=== PATIENT | male | born 1980 | race Caucasian/White ===

== ENCOUNTER 2016-09-11 12:07 | Emergency (ER) | payer SELFPAY ==
[2016-09-11 12:14] VITALS: BP 142/74; PULSE 64; O2SAT 100
--- NOTE | 2016-09-11 12:20 | ERPHSYRPT ---
- History of Present Illness Time Seen by Provider: 09/11/16 12:18 Source: patient Exam Limitations: no limitations Patient Subjective Stated Complaint: pt states he began having a toothache last pm. states pain in on the right lower jaw. Triage Nursing Assessment: pt pink, warm, dry. dental caries noted to right lower molars. pt afebrile. Physician History: pt states he began having a toothache last pm. states pain in on the right lower jaw. Timing/Duration: day(s) Associated Symptoms: denies symptoms Allergies/Adverse Reactions: poison oak extract [Poison [place] Extract] Allergy (Mild, Verified 09/11/16 12:14) Rash poison sumac extract [Poison [place] Extract] Allergy (Mild, Verified 09/11/16 12: 14) Rash Hx Tetanus, Diphtheria Vaccination/Date Given: Yes (up to date) Hx Influenza Vaccination/Date Given: No Hx Pneumococcal Vaccination/Date Given: No Immunizations Up to Date: Yes - Review of Systems Constitutional: No Symptoms Ears, Nose, & Throat: Loose Teeth Respiratory: No Symptoms Cardiac: No Symptoms Abdominal/Gastrointestinal: No Symptoms Genitourinary Symptoms: No Symptoms Musculoskeletal: No Symptoms - Past Medical History Pertinent Past Medical History: No Neurological History: Migraines ENT History: No Pertinent History Cardiac History: No Pertinent History Respiratory History: No Pertinent History Endocrine Medical History: No Pertinent History Musculoskeletal History: No Pertinent History GI Medical History: No Pertinent History History: No Pertinent History Psycho-Social History: No Pertinent History - Past Surgical History Past Surgical History: No Neuro Surgical History: No Pertinent History Cardiac: No Pertinent History Respiratory: No Pertinent History Gastrointestinal: No Pertinent History Genitourinary: No Pertinent History Musculoskeletal: No Pertinent History Male Surgical History: No Pertinent History - Social History Smoking Status: Current every day smoker How long have you smoked: 16 Exposure to second hand smoke: No Drug Use: none Patient Lives Alone: No Significant Family History: no pertinent family hx - Nursing Vital Signs Nursing Vital Signs: Initial Vital Signs Temperature 97.6 F Temperature Source Oral Pulse Rate 64 Respiratory Rate 20 Blood Pressure [Right Arm] 142/74 Pain Intensity 7 - Physical Exam General Appearance: no apparent distress Eye Exam: PERRL/EOMI Ears, Nose, Throat Exam: normal ENT inspection, moist mucous membranes, other ( right molar (lower) dental abscess) Neck Exam: normal inspection SpO2: 100 Oxygen Delivery: Room Air - Course Nursing assessment & vital signs reviewed: Yes - Progress Progress: unchanged Counseled pt/family regarding: diagnosis, need for follow-up (with dentist) - Departure Time of Disposition: 12:19 Departure Disposition: Home Clinical Impression: Dental abscess Condition: Stable Critical Care Time: No Referrals: DOCTOR,NO FAMILY [Primary Care Provider] - Instructions: Tooth Decay Additional Instructions: Please follow the instructions given to you. Please take your medication as prescribed if given. If symptoms recur or get worse, come back to the emergency room if you cannot reach your primary care physician, or call your primary care physician for an appointment. Again if your symptoms get worse, come back to the emergency room. Thanks for visiting emergency room, and let us take care of you. Prescriptions: Cephalexin Mh 500 mg [Keflex 500 mg] 500 mg PO Q6H #40 capsule Naproxen 375 mg [Naprosyn 375 mg] 375 mg PO Q8H #30 tablet
== END 2016-09-11 12:50 | disposition home or self-care (01) ==
LOC: ED 12:07
DX: K04.7 Periapical abscess without sinus (principal)
CPT/HCPCS: 99282

== ENCOUNTER 2018-02-17 14:39 | Emergency (ER) | payer BC ==
[2018-02-17 15:13] VITALS: BP 138/73
[2018-02-17 15:54] VITALS: PULSE 79; O2SAT 98
--- NOTE | 2018-02-17 16:09 | ERPHSYRPT ---
- History of Present Illness Time Seen by Provider: 02/17/18 15:53 Source: patient Exam Limitations: no limitations Patient Subjective Stated Complaint: patietn having pain in mouth that radiates up into jaw causing headache. called dentist cannot get in until next week Triage Nursing Assessment: pt alert and orietned x3, ambulates by self, gait is steady, patient has possible abscess tooth in top left side of mouth. skin warm dry and intact. no other complaints or areas noted inside oral cavity Physician History: 37-year-old white male arrives with complaint of pain in the left maxillary area beginning in the tooth and radiating up into his left side of his face symptoms for 2 days. He has no fevers no nausea no vomiting. Past medical history migraines . Past surgical history patient denies. Social history positive for tobacco use denies alcohol or illicit drug use. Timing/Duration: day(s) Severity: moderate (2 days) Modifying Factors: Improves With: nothing Associated Symptoms: other (dental pain), No nausea, No vomiting, No abdominal pain, No shortness of breath, No heartburn, No diaphoresis, No cough, No chills , No chest pain, No fever, No headaches, No loss of appetite, No malaise, No rash, No syncope, No seizure, No weakness Allergies/Adverse Reactions: poison oak extract [Poison [place] Extract] Allergy (Mild, Verified 09/11/16 12:14) Rash poison sumac extract [Poison Sumac Extract] Allergy (Mild, Verified 09/11/16 12: 14) Rash Hx Tetanus, Diphtheria Vaccination/Date Given: Yes Hx Influenza Vaccination/Date Given: No Hx Pneumococcal Vaccination/Date Given: No Immunizations Up to Date: Yes - Review of Systems Constitutional: No Fever, No Chills Eyes: No Symptoms Ears, Nose, & Throat: Mouth Pain, No Ear Pain, No Ear Discharge, No Hearing Changes, No Tinnitus, No Nose Pain, No Nose Congestion, No Nose Discharge, No Sinus Drainage, No Epistaxis, No Mouth Swelling, No Loose Teeth, No Throat Pain , No Throat Swelling, No Hoarse, No Painful Swallowing, No Snoring, No Stridor Respiratory: No Cough, No Dyspnea Cardiac: No Chest Pain, No Edema, No Syncope Abdominal/Gastrointestinal: No Abdominal Pain, No Nausea, No Vomiting, No Diarrhea Genitourinary Symptoms: No Dysuria Musculoskeletal: No Back Pain, No Neck Pain Skin: No Rash Neurological: No Dizziness, No Focal Weakness, No Sensory Changes Psychological: No Symptoms Endocrine: No Symptoms All Other Systems: Reviewed and Negative - Past Medical History Pertinent Past Medical History: No Neurological History: Migraines ENT History: No Pertinent History Cardiac History: No Pertinent History Respiratory History: No Pertinent History Endocrine Medical History: No Pertinent History Musculoskeletal History: No Pertinent History GI Medical History: No Pertinent History History: No Pertinent History Psycho-Social History: No Pertinent History - Past Surgical History Past Surgical History: No Neuro Surgical History: No Pertinent History Cardiac: No Pertinent History Respiratory: No Pertinent History Gastrointestinal: No Pertinent History Genitourinary: No Pertinent History Musculoskeletal: No Pertinent History Male Surgical History: No Pertinent History - Social History Smoking Status: Current every day smoker How long have you smoked: 16 Exposure to second hand smoke: No Drug Use: none Patient Lives Alone: No Significant Family History: no pertinent family hx - Nursing Vital Signs Nursing Vital Signs: Initial Vital Signs Temperature 98.1 F 02/17/18 14:40 Pulse Rate 93 H 02/17/18 14:40 Respiratory Rate 16 02/17/18 14:40 Blood Pressure 138/73 02/17/18 14:40 O2 Sat by Pulse Oximetry 99 02/17/18 14:40 Pain Scale Pain Intensity 10 - Physical Exam General Appearance: mild distress Eye Exam: PERRL/EOMI, eyes nml inspection Ears, Nose, Throat Exam: TMs normal, pharynx normal, moist mucous membranes, other (patient with tenderness with palpation anterior maxillary area, carious tooth left anterior maxillary area tender) Neck Exam: normal inspection, non-tender, supple, full range of motion Respiratory Exam: normal breath sounds, lungs clear, No respiratory distress Cardiovascular Exam: regular rate/rhythm, normal heart sounds, normal peripheral pulses Gastrointestinal/Abdomen Exam: soft, normal bowel sounds, No tenderness, No mass Back Exam: normal inspection, normal range of motion, No CVA tenderness, No vertebral tenderness Extremity Exam: normal inspection, normal range of motion, pelvis stable Neurologic Exam: alert, oriented x 3, cooperative, bike mechanic II-XII nml as tested, normal mood/affect, nml cerebellar function, nml station & gait, sensation nml, No motor deficits Skin Exam: normal color, warm, dry, No rash SpO2 Interpretation: normal (98%) SpO2: 98 Oxygen Delivery: Room Air - Course Nursing assessment & vital signs reviewed: Yes - Progress Progress: improved Progress Note: 02/17/18 16:07 37-year-old white male arrives with complaint of pain in the left anterior maxillary area he has a carious tooth in this area. Will go ahead and write for clindamycin 300 mg orally 3 times a day for 10 days , [place] 5/325 #12 one orally every 4-6 hours as needed for pain. Patient was also advised to take Advil 3 tablets orally every 6 hours as needed. He is to follow-up with his dentist. Return for acute distress or for severe symptoms. - Departure Time of Disposition: 16:07 Departure Disposition: Home Clinical Impression: Dental caries, Pain due to dental caries Condition: Fair Critical Care Time: No Referrals: DOCTOR,NO FAMILY [Primary Care Provider] - Additional Instructions: Return home. Avoid excessively hot or cold foods. [place] as prescribed. Clindamycin as prescribed. Advil [id number] 3 tablets orally every 6 hours as needed. Cold packs to area (external) 24 hours. Follow-up with your dentist. Return for acute distress or for severe symptoms. Prescriptions: Clindamycin HCl 300 mg PO TID #30 capsule Hydrocodone/Acetaminophen [[place] 5-325 Tablet] 1 tab PO Q4-6HPRN PRN #12 tablet MDD 6 tablets PRN Reason: Pain
== END 2018-02-17 16:21 | disposition home or self-care (01) ==
LOC: ED 14:39
DX: K02.9 Dental caries, unspecified (principal); K08.89 Other specified disorders of teeth and supporting structures
CPT/HCPCS: 99283